=== PATIENT | female | born 1980 | race Caucasian/White ===

== ENCOUNTER 2016-12-25 15:21 | Inpatient (IN) | payer OTHER ==
[~2016-12-25] VITALS: Ht 177.8 cm; Wt 83.9 kg
[~2016-12-25 15:21] MED LIST: IBUPROFEN800 MG PO; NATURAL IRON65 MG PO; PERCOCET 325 MG1 TA2 PO; PRENATAL1 TA1 PO; VITAB121000 PO; ZOFRAN4 M1 PO
--- NOTE | 2016-12-25 15:24 | NUR ---
PT TO ED C/O UPPER ABD PAIN SINCE TUESDAY. PT WENT TO SEE DR KELLOGG AND WAS GIVEN BENTYL AND PRILOSEC, HAS BEEN TAKING PRESCRIBED WITH NO RELIEF. PAIN IS WORSE AFTER EATING. DENIES N/V/D. DENIES CLAIR S/S.
--- NOTE | 2016-12-25 15:35 | NUR ---
SMILEY CHOIUN IN WITH PATIENT
--- NOTE | 2016-12-25 15:36 | ED GI/GU/ABDOMINAL COMPLAINT ---
History of Present Illness General Chief Complaint: Abdominal Pain/Flank Pain Stated Complaint: ABDOMINAL PAIN Source: patient, family, old records Exam Limitations: no limitations Vital Signs & Intake/Output Vital Signs & Intake/Output Vital Signs Date Time Temp Pulse Resp B/P B/P Pulse O2 O2 Flow FiO2 Mean Ox Delivery Rate 12/26 0658 98.3 70 20 112/70 98 12/25 2208 98.0 81 18 128/66 98 12/25 2042 99.3 71 16 125/69 98 Room Air 12/25 1859 98.9 75 16 126/65 99 Room Air 12/25 1523 97.8 100 20 128/80 98 Room Air ED Intake and Output 12/26 0000 12/25 1200 Intake Total 1400 Output Total Balance 1400 Intake, IV 1300 Intake, Oral 100 Patient 185 lb Weight Weight Reported by Patient Measurement Method Triage Note: PT TO ED C/O UPPER ABD PAIN SINCE TUESDAY. PT WENT TO SEE DR KELLOGG AND WAS GIVEN BENTYL AND PRILOSEC, HAS BEEN TAKING PRESCRIBED WITH NO RELIEF. PAIN IS WORSE AFTER EATING. DENIES N/V/D. DENIES S/S. Triage Nurses Notes Reviewed? yes ? n Is pt currently ? No HPI: Patient is a 36-year-old female presents complaining of upper abdominal pain. Symptoms onset Tuesday evening. Patient reports pain is a burning/aching sensation is currently moderate, worsens after eating or drinking. Patient reports that even water has caused exacerbation of her symptoms. Patient saw her primary doctor on Tuesday and was started on omeprazole with no improvement. Patient was also seen on by her primary doctor and was prescribed Bentyl with no improvement. Patient had a fever on Tuesday, no fever since. (KRYSTLE HARDIN) Allergies Coded Allergies: NO KNOWN ALLERGIES (12/25/16) Reconcile Medications Sertraline HCl 50 MG TABLET 1 TAB PO DAILY DEPRSSION (Reported) (CHLOÉ SLOAN,PEDRO Fountain) Past History Travel History Traveled to [place] past 21 day No Medical History Any Pertinent Medical History? see below for history Psychiatric: depression Surgical History Surgical History: Psychosocial History What is your primary language Dominican Tobacco Use: Never used ETOH Use: occasional use Illicit Drug Use: denies illicit drug use Family History Hx Contributory? No (KRYSTLE HARDIN) Review of Systems Review of Systems Constitutional: Reports: fever (resolved). Denies: chills. EENTM: Reports: no symptoms. Respiratory: Denies: cough, short of breath. Cardiovascular: Denies: chest pain. GI: Reports: see HPI. Genitourinary: Reports: no symptoms. Musculoskeletal: Reports: no symptoms. Skin: Reports: no symptoms. Neurological/Psychological: Reports: no symptoms. Hematologic/Endocrine: Reports: no symptoms. Immunologic/Allergic: Reports: no symptoms. (KRYSTLE HARDIN) Physical Exam Physical Exam General Appearance: well developed/nourished, alert, awake Head: atraumatic, normal appearance Eyes: Bilateral: normal appearance, PERRL, EOMI. Ears, Nose, Throat, Mouth: hearing grossly normal, moist mucous membrane Neck: normal inspection, supple, full range of motion Respiratory: normal breath sounds, chest non-tender, no respiratory distress, lungs clear Cardiovascular: regular rate/rhythm Gastrointestinal: normal bowel sounds, soft, mild epigastric and right upper quadrant tenderness. Negative Jiménez sign Back: normal inspection, normal range of motion Extremities: normal range of motion Neurologic/Psych: no motor/sensory deficits, awake, alert, oriented x 3, normal gait, normal mood/affect Skin: intact, normal color, warm/dry Core Measures ACS in differential dx? No Severe Sepsis Present: No Septic Shock Present: No (KRYSTLE HARDIN) Progress Differential Diagnosis: pancreatitis, cholecystitis, biliary colic, small bowel obstruction, ileus, PUD, GERD, malignancy, aortic dissection, AAA Plan of Care: Orders Procedure Date/time Status Nothing by Mouth 12/27 B Active Clear Liquid Diet 12/26 B Active PHARMACY COMMUNICATION FORM 12/26 0914 Active BASIC ELECTROLYTES PLUS BUN&CR 12/26 0600 Complete Clear Liquid Diet 12/25 D Complete Vital Signs 12/25 230 Complete Teach/Educate 12/25 2299 Active Pain Treatment and Response 12/25 2299 Active Nutritional Intake, Monitor 12/25 2299 Active Isolation 12/25 230 Active Intake & Output 12/25 2299 Complete Patient Care Conference 12/25 2299 Active Activity/Ambulation 12/25 2299 Complete Pathway - chart 12/25 2041 Active Pathway - chart 12/26 2031 Active House Staff 12/26 2031 Active Code Status 12/26 2031 Active OXYGEN SETUP (GEN) 12/26 1931 Active Saline Lock 12/26 1931 Active Admit to inpatient 12/26 1931 Active Vital Signs 12/26 1931 Active Activity/Ambulation 12/26 1931 Active Code Status 12/26 1931 Complete Patient Data 12/25 1924 Active Admit to inpatient 12/25 191 Active Intake & Output 12/25 1744 Active LIPASE 12/25 1544 Complete HUMAN BETA HCG SCREEN 12/25 1544 Complete COMPREHENSIVE METABOLIC PANEL 12/25 1544 Complete CBC WITHOUT DIFFERENTIAL 12/25 1544 Complete AMYLASE 12/25 1544 Complete VTE Mechanical Prophylaxis 12/25 UNK Active Current Medications Sig/Clarisa Start time Last Medication Dose Stop Time Status Admin Enoxaparin Sodium 40 MG DAILY 12/25 2359 AC 12/26 (Lovenox) 0234 Dextrose/Sodium 1,000 ML Q6H 12/25 2100 AC 12/26 Chloride 0905 (D5W-1/2 Normal Saline 1000ML) Acetaminophen 1,000 MG Q6P PRN 12/25 2044 AC 12/26 (Ofirmev) 0905 Dicyclomine HCl 10 MG Q6 PRN 12/25 2044 AC (Bentyl Injection) 12/27 0600 Morphine Sulfate 2 MG Q4P PRN 12/25 2044 AC 12/26 (Morphine) 0702 Ondansetron HCl 4 MG Q6P PRN 12/25 2044 AC (Zofran) Pantoprazole Sodium 40 MG DAILY 12/25 2033 AC 12/26 (Protonix) 0905 Laboratory Tests 12/26/16 0646: Anion Gap 10, Estimated GFR > 60, BUN/Creatinine Ratio 18.0 12/25/16 1600: Anion Gap 10, Estimated GFR > 60, BUN/Creatinine Ratio 32.0 H, Glucose 95, Calcium 9.0, Total Bilirubin 0.7, AST 23, ALT 37, Alkaline Phosphatase 55, Total Protein 7.3, Albumin 4.3, Globulin 3.0, Albumin/Globulin Ratio 1.4, Amylase 80, Lipase 106, Total Beta HCG NEGATIVE, CBC w Diff NO MAN DIFF REQ, RBC 4.47, MCV 84.3, MCH 28.4, RDW 13.1, MPV 8.1, Gran % 49.0, Lymphocytes % 33.8, Monocytes % 14.6 H, Eosinophils % 1.9, Basophils % 0.7, Absolute Granulocytes 2.0, Absolute Lymphocytes 1.4, Absolute Monocytes 0.6, Absolute Eosinophils 0.1, Absolute Basophils 0, PUBS MCHC 33.7 190: Discussed with Dr. Sarabia: recommends admission, will consult on patient in the morning. Discussed with Dr. Cruz. Discussed with Dr. Plata (KRYSTLE HARDIN) Diagnostic Imaging: Viewed by Me: CT Scan. Discussed w/RAD: CT Scan. Radiology Impression: PATIENT: CK COATES PRESENT AGE: 51 PATIENT ACCOUNT NO: [id number] : [birth year] LOCATION: [facility] ORDERING PHYSICIAN: KRYSTLE REIS SERVICE DATE: 12/25/16 EXAM TYPE: RAD - XRY-PORTABLE CHEST XRAY EXAMINATION: XR PORTABLE CHEST CLINICAL INFORMATION: Severe dyspnea. COMPARISON: CXR from 10/02/2016 TECHNIQUE: Portable AP view of the chest was obtained. FINDINGS: Lungs are hyperexpanded and hyperlucent from severe emphysema. The bronchial rivera remain thickened in both lungs. This could be a manifestation of chronic bronchitis. A stable calcified granuloma seen in the right upper lobe. In this region, there is a linear opacity of apparent scarring, unchanged compared to 10/02/2016. The hazy opacity projecting lateral to the lower cardiac border might be related to the overlying breast tissue. However, unable to exclude atelectasis or groundglass infiltrate in the lingula. Follow-up PA and lateral chest radiographs may be helpful. Cardiac silhouette is normal in size. The visualized bones are unremarkable. IMPRESSION: 1. Severe pulmonary emphysema and chronic bronchial wall thickening in both lungs. 2. Possible infiltrate within the lingula and/or left lower lobe. Follow-up with PA and lateral chest radiographs may be helpful to confirm presence of new disease in this region. DICTATED BY: SUSANNE RAUSCH MD DATE/ TIME DICTATED:12/25/161841 PUBLIC RELATIONS SUPERVISOR:SHAHID DATE/TIME TRANSCRIBED: 12/25/161841 CONFIDENTIAL, DO NOT COPY WITHOUT APPROPRIATE AUTHORIZATION. < Electronically signed in Other Vendor System> SIGNED BY: SUSANNE RAUSCH MD 12/25/16 7947 Initial ED EKG: none (KRYSTLE HARDIN) Departure Departure Time of Disposition: 1911 Disposition: STILL A PATIENT Condition: Stable Clinical Impression Primary Impression: Mass of stomach Referrals: LOI KELLOGG MD (PCP/Family) Departure Forms: Customer Survey General Discharge Information Admission Note Spoke With: NABEEL PLATA MD Documentation of Exam: Documentation of any treatments & extenuating circumstances including Concerns Regarding Discharge (functional status, medication knowledge or non-compliance, living conditions, etc.) that warrant an admission rather than observation: IV fluids, GI consultation, endoscopy and biopsy. Patient not able to tolerate significant oral intake due to severe pain with any oral intake. (MAX REIS,KRYSTLE) PA/SHERIFF SERGEANT Co-Sign Statement Statement: ED Attending supervision documentation- [] I saw and evaluated the patient. I have also reviewed all the pertinent lab results and diagnostic results. I agree with the findings and the plan of care as documented in the PA's/SHERIFF SERGEANT's documentation. [X] I have reviewed the ED Record and agree with the PA's/SHERIFF SERGEANT's documentation. [] Additions or exceptions (if any) to the PAs/SHERIFF SERGEANT's note and plan are summarized below: [] (CHLOÉ SLOAN,PEDRO Fountain)
[2016-12-25 16:12] LABS: ABSOLUTE BASOPHIL COUNT 0 /CUMM (0.0-0.2); ABSOLUTE EOSINOPHIL COUNT 0.1 /CUMM (0.0-0.7); ABSOLUTE LYMPH COUNT 1.4 /CUMM (1.2-3.4); ABSOLUTE MONOCYTE COUNT 0.6 /CUMM (0.10-0.60); BASOPHIL % 0.7 % (0.0-2.0); EOSINOPHIL % 1.9 % (0-5); HEMATOCRIT 37.6 % (37-47); MEAN CORPUSCULAR HGB 28.4 PG (27.0-31.0); MEAN CORPUSCULAR HGB CONC 33.7 G/DL (33.0-37.0); MEAN CORPUSCULAR VOLUME 84.3 FL (81.0-99.0); MEAN PLATELET VOLUME 8.1 FL (7.4-10.4); PLATELET COUNT 254 /CUMM (130-400); RBC DISTRIBUTION WIDTH 13.1 % (11.5-14.5); RED BLOOD CELL CT 4.47 /CUMM (4.20-5.40); WHITE BLOOD CELL COUNT 4.2 /CUMM (4.8-10.8)
--- NOTE | 2016-12-25 16:20 | NUR ---
PT GIVEN IV ZOFRAN PER ORDER. IVF RUNNING
--- NOTE | 2016-12-25 17:51 | NUR ---
PT TO CT SCAN
--- NOTE | 2016-12-25 18:39 | CT SCAN REPORT ---
EXAMINATION: CT ABDOMEN AND PELVIS WITH CONTRAST CLINICAL INFORMATION: Epigastric pain radiating to right upper and left upper quadrant. COMPARISON: None TECHNIQUE: Multidetector volumetric imaging was performed of the abdomen and pelvis before and after the IV administration of 94 mL of Optiray 320 intravenous contrast. Sagittal and coronal reformatted images were obtained on the technologist's workstation. DLP: 342 mGy-cm FINDINGS: LUNG BASES: Unremarkable. LIVER, GALLBLADDER, AND BILIARY TREE: Liver has normal size, contour and attenuation. There is a solitary focus of coarse calcification in the anterior hepatic segment. No evidence of hepatic mass or intrahepatic bile duct dilatation. Gallbladder is unremarkable. PANCREAS: Unremarkable. SPLEEN: The spleen is enlarged from a volumetric perspective, measuring 13.4 cm AP, 11.5 cm craniocaudal and approximately 5 cm wide at its hilum. There are no focal splenic lesions. The splenic vein is normal. ADRENAL GLANDS: Unremarkable. KIDNEYS AND URETERS: The kidneys are normal in size, shape, and attenuation. No hydronephrosis, hydroureter, or calculi seen. No perinephric stranding. BLADDER: Urinary bladder is empty and, therefore, suboptimally evaluated. No bladder calculi. GASTROINTESTINAL TRACT: The stomach is suboptimally distended. There appears to be a centrally ulcerating, smoothly marginated 5 x 4.6 x 4 cm mass arising from the wall of the lesser curvature of the proximal stomach (axial images 11-16, series 2; coronal reformatted images 35-45). The mass contacts the capsular surface of the adjacent left lobe of the liver but does not appear to infiltrate into the liver. Small and large bowel are normal in size. The appendix is normal. No evidence of acute inflammation or obstruction along the gastrointestinal tract. No ascites or pneumoperitoneum. There are no soft tissue nodules along the omentum. ABDOMINAL WALL: Unremarkable. LYMPH NODES: No pathologic sized lymph nodes within the abdomen or pelvis. VASCULAR: Abdominal aorta is normal in caliber and the celiac trunk, SMA, NEYMAR and renal arteries are widely patient. PELVIC VISCERA: The anteflexed uterus is normal in size. The ovaries are grossly normal. A trace amount of free fluid is seen in the pelvic cul-de-sac. OSSEOUS STRUCTURES: There is anterior disc space narrowing and osteophyte formation at T9-T10. There is moderate degenerative disc space narrowing, endplate irregularity and osteophyte formation of L4-L5. There are small sclerotic foci, compatible with bone islands, involving the L3 vertebral body and pelvic bones. No suspicious bone lesions. IMPRESSION: 1. There is a smoothly marginated, centrally ulcerating 5 x 4.6 x 4 cm mass along the wall of the lesser curvature of the proximal stomach for which differential diagnosis would include gastrointestinal stromal tumor. Recommend consultation with the gastroenterology service to determine whether further workup, including endoscopic biopsy, should be performed. 2. Splenomegaly without lymphadenopathy.
--- NOTE | 2016-12-25 18:59 | NUR ---
SMILEY SANTANA CONSULTING DR WELDON GI SPECIALIST FOR RECOMMENDATIONS.
--- NOTE | 2016-12-25 19:46 | NUR ---
IN WITH PT
--- NOTE | 2016-12-25 20:28 | History & Physical ---
SHRAVAN TORRES 12/25/16 2006: General Information and HPI MD Statement: I have seen and personally examined GRAY ROSS and documented this H&P. The patient is a 36 year old F who presented with a patient stated chief complaint of [epigastric pain]. Source of Information: patient, EMS Exam Limitations: no limitations History of Present Illness: 36-year-old woman without any significant past medical history was admitted for intractable abdominal pain and poor oral intake. According to patient her problems started about a month ago with intermittent heartburn which was responding to urgw-kem-bbycryh antiacid medication. On Tuesday night patient developed a severe wretching periumbilical and epigastric abdominal pain which was not responding to adof-kxj-ddjuzyj pain killers and acid suppressing treatments. Drinking or eating worsened the pain (no difference between liquid and solid but it tends to be less inflicted by warm liquids and inflicted more severely with greasy and spicy foods). Pain radiates to all the quadrants and tends to alleviate with not eating, patient felt nautious but did not vomit. She also reports slight increased in Temp (100.2) amd chills and flushing (??). Patient reports constipation for the past month, she denies diarrhea, weight loss, excessive sweating, lymphadenopathy, dark tarry stool, blood in the stool. Her symptoms fail to alleviate by PO omeprazole and dicyclomine. 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 Allergies/Medications Allergies: Coded Allergies: NO KNOWN ALLERGIES (12/25/16) Home Med list Sertraline HCl 50 MG TABLET 1 TAB PO DAILY DEPRSSION (Reported) Compliance With Home Meds: GOOD Past History Travel History Traveled to [place] past 21 day No Medical History Psychiatric: depression Surgical History Surgical History: Past Family/Social History Family History Relations & Conditions if any MOTHER (Breast CA). Psychosocial History ETOH Use: occasional use Illicit Drug Use: denies illicit drug use Functional Ability ADLs Independent: dressing, eating, toileting, bathing. Ambulation: independent IADLs Independent: shopping, housework, finances, food prep, telephone, transportation , medication admin. Review of Systems Review of Systems Constitutional: Reports: see HPI. EENTM: Reports: see HPI. Cardiovascular: Reports: see HPI. Respiratory: Reports: see HPI. GI: Reports: abdominal pain, constipation, nausea, vomiting. Genitourinary: Reports: no symptoms. Musculoskeletal: Reports: see HPI. Skin: Reports: see HPI. Neurological/Psychological: Reports: see HPI. All Other Systems: Reviewed and Negative Exam & Diagnostic Data Last 24 Hrs of Vital Signs/I&O Vital Signs Date Time Temp Pulse Resp B/P B/P Pulse O2 O2 Flow FiO2 Mean Ox Delivery Rate 12/25 1859 98.9 75 16 126/65 99 Room Air 12/25 1523 97.8 100 20 128/80 98 Room Air Intake & Output 12/25 1600 12/25 0800 12/25 0000 Intake Total Output Total Balance Patient 185 lb Weight Weight Reported by Patient Measurement Method Physical Exam General Appearance Alert, Oriented X3, Cooperative Sepsis Skin Exam (color): Normal for Ethnicity HEENT Atraumatic Neck Supple, No JVD Lymphatic Axillary nl, Cervical nl Cardiovascular Normal S1, Normal S2, No Murmurs Lungs Clear to Auscultation, Normal Air Movement Abdomen No Hepatospenomegaly, No Masses, preumbilical tenderness, normal active bs, no gaurding no rebound Neurological Normal Speech, Strength at 5/5 X4 Ext Extremities No Clubbing, No Cyanosis, No Edema, Normal Pulses, No Tenderness/ Swelling Vascular Normal Pulses, Pulses Symmetrical Last 24 Hrs of Labs/Sachin: Laboratory Tests 12/25/16 1600: Anion Gap 10, Estimated GFR > 60, BUN/Creatinine Ratio 32.0 H, Glucose 95, Calcium 9.0, Total Bilirubin 0.7, AST 23, ALT 37, Alkaline Phosphatase 55, Total Protein 7.3, Albumin 4.3, Globulin 3.0, Albumin/Globulin Ratio 1.4, Amylase 80, Lipase 106, Total Beta HCG NEGATIVE, CBC w Diff NO MAN DIFF REQ, RBC 4.47, MCV 84.3, MCH 28.4, RDW 13.1, MPV 8.1, Gran % 49.0, Lymphocytes % 33.8, Monocytes % 14.6 H, Eosinophils % 1.9, Basophils % 0.7, Absolute Granulocytes 2.0, Absolute Lymphocytes 1.4, Absolute Monocytes 0.6, Absolute Eosinophils 0.1, Absolute Basophils 0, PUBS MCHC 33.7 Diagnostic Data EKG Results no ekg Assessment/Plan Assessment: 36-year-old woman was admitted for intractable abdominal pain and by mouth intolerance. C BC: H&H: 12.7\37.6, MCV 84.3; BEP: Sodium 138, potassium 3.9. BUN 16, creatinine 0.5, CT scan of the abdomen and pelvis: The stomach is suboptimally distended. There appears to be a centrally ulcerating, smoothly marginated 5 x 4.6 x 4 cm mass arising from the wall of the lesser curvature of the proximal stomach (axial images 11-16, series 2; coronal reformatted images 35-45). The mass contacts the capsular surface of the adjacent left lobe of the liver but does not appear to infiltrate into the liver. List of active problems #1. PRE- Umbilical and epigastric abdominal pain: This of differential diagnosis Gastric lymphomas, GISTs, neuroendocrine tumors, leiomyomas, leiomyosarcomas, carcinomas, endometriosis, lipomas, and diverticuli can all arise from the wall of the gastrointestinal tract. Normal pancreas, cystic lesions, and endometriosis can also rarely present in such a fashion. * Admit to general medical floor * Clear liquid diets * Resume IV hydration with D5 normal saline 150 mL per hour * Omeprazole 40 mg IV daily * Dicyclomine 10 mg every 6 hours as needed up to 2 days * Gastroenterology service was informed-plan for endoscopy and biopsy on Tuesday; nothing by mouth overnight from Tuesday midnight * IV Zofran 4 mg every 6 as needed for nausea #2 dehydration and hypokalemia. Secondary to poor oral intake * Continue IV hydration with D5 normal saline 150 mL per hour * KCl 10 mL IV #3 DVT prophylaxis-enoxaparin 30 units subcutaneous daily #4 pain: Dicyclomine for abdominal pain, avoid NSAIDs and aspirin, IV Tylenol for MODERATE pain, IV morphine for very severe pain Full code As Ranked By This Provider Problem List: 1. Nausea & vomiting 2. Mass of stomach Core Measures/Miscellaneous Acute Coronary Syndrome ACS Diagnosis: No Cerebrovascular Accident CVA/TIA Diagnosis: No NIH Stroke Scale: Total 0 Congestive Heart Failure CHF Diagnosis: No Venous Thromboembolism VTE Risk Factors: Acute medical illness, Immobility, paresis No Mech VTE prophylaxis d/t: No contraindications No VTE Pharm Prophylaxis d/t: No contraindications VTE Diagnosis: No VTE Type: NONE VTE Confirmed by (Test): NONE Severe Sepsis Severe Sepsis Present: No Septic Shock Septic Shock Present: No Miscellaneous Documentation Attending Case Discussed With: NABEEL PLATA MD Primary Care Physician: LOI KELLOGG MD A Patient sees these Specialists MEDIA SERVICES SPECIALIST Level of Patient Care: General Medicine Resident Review Statement Resident Statement: examined this patient, discussed with internal investigator, agreed with internal investigator, discussed with family, reviewed EMR data (avail), discussed with nursing , discussed with case mgmt, reviewed images, amended to note FILIPE PLATA MD 12/25/16 2200: Attending MD Review Statement Attending Statement Attending MD Statement: examined this patient, discuss w/resident/PA/COMPOSING ROOM SUPERVISOR, agreed w/resident/PA/COMPOSING ROOM SUPERVISOR Attending Assessment/Plan: 36 yo F with h/o depression, pw 1 month h/o heartburn that initially responded to OTC antacids, but for the past 1 week she developed epigastric/ periumbilical pain not responding to omeprazole and Bentyl that PCP had prescribed. Poor PO intake, as food/ liquids makes her symptoms worse. Nausea/ retching+. No dysphagia or odynophagia. No melena, hematochezia or BRBPR. No weight loss. No previous EGD or colonoscopy. No significant family h/o gastric caner. Patient has never been diagnosed with PUD. Vitals stable. Exam remarkable for minimal periumbilical tenderness. Patient reports that the discomfort occurs only after she eats food. Labs unremarkable. CT abd/pelvis: mass (centrally ulcerating) along lesser curvature of stomach possible gastrointestinal stromal tumor. Splenomegaly. 1. Heartburn, epigastric/periumbilical pain. GM admit, clear liquid diet, IV fluids, IV PPI, anti-emetics. GI consult with need for EGD to further evaluate the mass and biopsy it. Pain management. 2. Depression. Hold sertraline. DVT ppx Lovenox. Full code.
--- NOTE | 2016-12-25 20:34 | NUR ---
PT GOING TO ROOM 209-1.
--- NOTE | 2016-12-25 20:43 | NUR ---
REPORT GIVEN TO FILIPPO HAYWARD ON 2NB. PT TO BE TRANSFERRED TO 208.
[2016-12-25] MEDS ORDERED: SERTRALINE HCL50 MG PO (21:07)
--- NOTE | 2016-12-25 21:08 | NUR ---
PT A+O AND IN NAD. LEFT FLOOR ON STRETCHER. ALL BELONGINGS WITH PT.
--- NOTE | 2016-12-25 22:02 | Admission Certification ---
Admission Certification Certification Statement - As attending physician, I certify that at the time of - admission, based on clinical presentation, severity of - symptoms, need for further diagnostic testing and - therapeutic interventions, and risk of adverse outcomes - without in-hospital treatment, in my clinical assessment, - this patient requires an acute hospital stay for a minimum - of two nights or longer. I have also considered psychsocial - factors such as support system, advanced age, financial - issues, cognitive issues, and failed out-patient treatments, - past re-admission history, safety of patient, and lack of - compliance as applicable. Specific rationale supporting this admission is: Heartburn, stomach mass that needs further evaluation by GI with EGD.
[2016-12-25 22:08] VITALS: BP 128/66
[2016-12-26 06:58] VITALS: BP 112/70
--- NOTE | 2016-12-26 11:52 | PN- Att Addend ---
Attending Addendum Attending Brief Note Pt was seen and evaluated by me. H&P reviewed. Currently, reports doing OK, able to tolerate diet. On IVF VSS GEN: pleasant lady, AAOx3 HEENT: moist mucosa LUNGS: CTAB HEART: s1s2 ABD: soft, mild tenderness to deep palp over RUQ area EXT: no edema Labs/Diagnostics reviewed A/P -- f/u GI consult for possible EDG with biopsy -- cont current mgmt -- cont to monitor -- Full Code
[2016-12-26 14:26] VITALS: BP 112/71
--- NOTE | 2016-12-26 15:05 | Cons- Gastroenterology ---
General Information and HPI Consulting Request Date of Consult: 12/26/16 Requested By: BONI SLOAN,NABEEL Reason for Consult: Abdo pain Source of Information: patient, old records Exam Limitations: no limitations History of Present Illness: 36-year-old woman without any significant past medical history with intractable epigastric pain and poor oral intake due to exacerbation of the pain by eating. According to patient her problems started about a month ago with intermittent heartburn which was responding to [id number] antiacid medication. 4 days before admission patient developed a severe wretching periumbilical and epigastric abdominal pain which was not responding to NSAIDs and acid suppressing treatments. Drinking or eating worsened the pain. Pain radiates to all the quadrants and tends to alleviate with not eating, patient felt nautious but did not vomit. Pain was not worsened by movement or having a bowel movement. Patient may have had a little bit of weight loss in the last 4 days due to poor by mouth intake but in general has not been losing weight. 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 Patient is a lifetime nonsmoker/socially drinks alcohol/family history is strongly positive for breast cancer in her mother and grandmother. A grandparent had colon cancer but no other history of GI malignancies or peptic ulcer disease. Allergies/Medications Allergies: Coded Allergies: NO KNOWN ALLERGIES (12/25/16) Home Med List: Sertraline HCl 50 MG TABLET 1 TAB PO DAILY DEPRSSION (Reported) Past History Travel History Traveled to [place] past 21 day No Medical History Psychiatric: depression Surgical History Surgical History: Family History Relations & Conditions If Any: MOTHER (Breast CA). Psychosocial History Where Do You Live? Home Smoking Status: Never Smoked ETOH Use: occasional use Illicit Drug Use: denies illicit drug use Functional Ability ADLs Independent: dressing, eating, toileting, bathing. Ambulation: independent IADLs Independent: shopping, housework, finances, food prep, telephone, transportation , medication admin. Review of Systems Review of Systems: Continues to have mild epigastric pain but is haven't a medicated at present. Nausea no vomiting. Has an appetite but reluctant to eat as this usually exacerbates the pain. No malaise fatigue cough phlegm dysuria right goers chills. Exam & Diagnostic Data Vital Signs and I&O General Appearance Alert, Oriented X3, Cooperative Sepsis Skin Exam (color): Normal for Ethnicity HEENT Atraumatic Neck Supple, No JVD Lymphatic Axillary nl, Cervical nl Cardiovascular Normal S1, Normal S2, No Murmurs Lungs Clear to Auscultation, Normal Air Movement Abdomen No Hepatospenomegaly, No Masses, preumbilical tenderness, normal active bs, no gaurding no rebound Neurological Normal Speech, Strength at 5/5 X4 Ext Extremities No Clubbing, No Cyanosis, No Edema, Normal Pulses, No Tenderness/ Swelling Vascular Normal Pulses, Pulses Symmetrical No lymphadenopathy in either axilla. Vital Signs Date Time Temp Pulse Resp B/P B/P Pulse O2 O2 Flow FiO2 Mean Ox Delivery Rate 12/26 1426 98.6 76 20 112/71 97 Room Air 12/26 0658 98.3 70 20 112/70 98 12/25 2208 98.0 81 18 128/66 98 12/25 2042 99.3 71 16 125/69 98 Room Air 12/25 1859 98.9 75 16 126/65 99 Room Air 12/25 1523 97.8 100 20 128/80 98 Room Air Intake & Output 12/26 1600 14 0400 12/25 1600 12/25 0400 12/24 1600 12/24 0400 Intake Total 2540 1400 Output Total Balance 2540 1400 Intake, IV 2200 1300 Intake, Oral 340 100 Patient 185 lb 185 lb Weight Weight Reported by Patient Reported by Patient Measurement Method CT: GASTROINTESTINAL TRACT: The stomach is suboptimally distended. There appears to be a centrally ulcerating, smoothly marginated 5 x 4.6 x 4 cm mass arising from the wall of the lesser curvature of the proximal stomach (axial images 11-16, series 2; coronal reformatted images 35-45). The mass contacts the capsular surface of the adjacent left lobe of the liver but does not appear to infiltrate into the liver. Small and large bowel are normal in size. The appendix is normal. No evidence of acute inflammation or obstruction along the gastrointestinal tract. No ascites or pneumoperitoneum. There are no soft tissue nodules along the omentum. Assessment/Plan Assessment/Recommendations: In summary we have a 36-year-old lady with approximately a one-month history of epigastric discomfort and a 4 day history of severe epigastric pain. The CT scan shows a mass in the lesser curvature of the stomach with some evidence of abnormality in the hepatic capsule. The presence of a mass with an ulceration and some involvement of the hepatic She'll is very concerning for a taking tumor. However her overall health with lack of weight loss and general cachexia favors a more benign etiology. At present the differential includes every gastric mass. The fact that the patient doesn't have evidence of anemia or iron deficiency is somewhat reassuring. Please place the patient nothing by mouth from midnight for EGD tomorrow. Consult Acknowledgment - Thank you for your consult request.
[2016-12-26 21:46] VITALS: BP 100/60
[2016-12-27 06:15] VITALS: BP 100/58
--- NOTE | 2016-12-27 07:03 | PN- Housestaff ---
NGUYEN MALHOTRA 12/27/16 0703: Subjective Follow-up For: Mass on lesser curvature proximal stomach Dyspepsia Complaints: no complaints Subjective: Interval history: Mrs. Mosley this morning states that she feels nervous about the potential diagnosis. She denies any worsening abdominal pain or recurrence of nausea. She denies any fevers, chills, chest pain, palpitations, shortness of breath, diarrhea. Review of Systems Constitutional: Reports: see HPI. EENTM: Reports: no symptoms. Cardiovascular: Reports: no symptoms. Respiratory: Reports: no symptoms. Gastrointestinal: Reports: see HPI. Musculoskeletal: Reports: no symptoms. Neurological/Psychological: Reports: see HPI. Objective Last 24 Hrs of Vital Signs/I&O Vital Signs Date Time Temp Pulse Resp B/P B/P Pulse O2 O2 Flow FiO2 Mean Ox Delivery Rate 12/27 0615 99.2 75 18 100/58 98 Room Air 12/26 2146 99.0 88 17 100/60 98 12/26 1426 98.6 76 20 112/71 97 Room Air Intake & Output 12/27 1600 12/27 0800 12/27 0000 Intake Total 1000 1320 Output Total Balance 1000 1320 Intake, IV 1000 1200 Intake, Oral 0 120 Physical Exam General Appearance: Alert, Cooperative, No Acute Distress Skin: No Breakdown HEENT: EOMI, Mucous Membr. moist/pink Cardiovascular: Regular Rate, Normal S1, Normal S2 Lungs: Clear to Auscultation, Normal Air Movement Abdomen: Normal Bowel Sounds, Soft, mild discomfort elicited on palpation over the epigastric region Neurological: Normal Tone, Sensation Intact Extremities: No Edema, Normal Pulses Vascular: Normal Pulses Current Medications: Current Medications Sig/Clarisa Start time Last Medication Dose Route Stop Time Status Admin Acetaminophen 1,000 MG Q6P PRN 12/25 2044 AC 12/26 IV 0905 Dextrose/Sodium 1,000 ML Q6H 12/25 2100 AC 12/27 Chloride IV 0437 Dicyclomine HCl 10 MG Q6 PRN 12/25 2044 DC IM 12/27 0600 Enoxaparin Sodium 40 MG 12/26 AC 12/26 SC 2200 Enoxaparin Sodium 40 MG DAILY 12/25 235 DC 12/26 SC 0234 Melatonin 3 MG ONCE ONE 12/26 2114 DC 12/26 PO 12/26 Morphine Sulfate 2 MG Q4P PRN 12/25 2044 12/26 IV 171 Ondansetron HCl 4 MG .[facility] ONE 12/26 1711 DC IM 12/27 1711 Ondansetron HCl 4 MG Q6P PRN 12/25 2044 12/26 IV 171 Pantoprazole Sodium 40 MG DAILY 12/25 2033 12/26 IV 0905 Assessment/Plan Assessment: Ms. Mosley is a 36-year-old lady with a PMH of depression managed on Zoloft who presented to [place] on 12/25/2016 with complaints of epigastric discomfort. Symptoms started one month ago with what she described as heartburn localized around the substernal region, nonradiating, constant, mild relief with Pepcid. On 12/21/2016 she was woken up from sleep with what she described as epigastric sharp pain not relieved with Pepcid or Tylenol, associated with nausea. She followed up with PCP and was started on omeprazole which did not provide relief to epigastric pain. She continued to experience the epigastric discomfort which is now exacerbated with liquids and a sensation of food getting stuck in the stomach region. She again followed up with her PCP and was started on dicyclomine which still did not provide any relief prompting her to come to the ED. She denied any recent travel, sick contacts, diarrhea, bloody/black stools. 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 Recommend consultation with the gastroenterology service to determine whether further workup, including endoscopic biopsy, should be performed. Problem list: 1. Mass on lesser curvature of proximal stomach 2. Dyspepsia 3. Depression Plan: 1. Mass on lesser curvature of proximal stomach * EGD on 12/27/2016: Fundic ulcerated submucosal mass. 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 We'll follow-up recommendations from surgical consult * Depending on how she tolerates diet, will coordinate outpatient or transfer for further management * If worsening pain/bleeding/hemodynamic instability will make her NPO, restart IV PPI, call surgery stat * Follow-up biopsies 2. Dyspepsia * Sucralfate 1 g PO QID * Omeprazole 40 mg PO BID * Avoid NSAIDs 3. Depression * Stable at this time * Continue Zoloft 4. DVT prophylaxis: Lovenox 5. CODE STATUS: Full code Problem List: 1. Mass of stomach 2. Gastric ulceration 3. Dyspepsia 4. Depression Pain Ratin Pain Location: Epigastric region Pain Goal: Pain 4 or less Pain Plan: Morphine Percocet Tomorrow's Labs & Rationales: None required DVT/Prophylaxis: pharmacological YOSHI BENTLEY MD 12/27/16 1200: Attending MD Review Statement Attending Statement Attending MD Statement: examined this patient, discuss w/resident/PA/DRILLING RIG OPERATOR, agreed w/resident/PA/DRILLING RIG OPERATOR, reviewed EMR data (avail), discussed with nursing, reviewed images Attending Assessment/Plan: Patient is nervous about EGD. She understands that there is a masslike lesion that was seen on the CT scan and that the endoscopy and biopsy will give us an answer. She is a young woman with really no significant past medical history who works as a teacher and has been having symptoms of heartburn for the past 3- 4 weeks. She is a nonsmoker, social alcohol and there hasn't been any significantly documented weight loss. The differential is very wide at this point and will await to see endoscopy results.
[2016-12-27 09:36] LABS: ABSOLUTE BASOPHIL COUNT 0 /CUMM (0.0-0.2); ABSOLUTE EOSINOPHIL COUNT 0.1 /CUMM (0.0-0.7); ABSOLUTE GRANULOCYTE CT 1.4 /CUMM (1.4-6.5); ABSOLUTE LYMPH COUNT 1.3 /CUMM (1.2-3.4); ABSOLUTE MONOCYTE COUNT 0.5 /CUMM (0.10-0.60); BASOPHIL % 0.4 % (0.0-2.0); EOSINOPHIL % 3.3 % (0-5); GRANULOCYTE % 44.1 % (42.2-75.2); HEMATOCRIT 33.4 % (37-47); MEAN CORPUSCULAR HGB 28.2 PG (27.0-31.0); MEAN CORPUSCULAR HGB CONC 33.9 G/DL (33.0-37.0); MEAN CORPUSCULAR VOLUME 83.4 FL (81.0-99.0); MEAN PLATELET VOLUME 8.3 FL (7.4-10.4); PLATELET COUNT 212 /CUMM (130-400); RBC DISTRIBUTION WIDTH 13.2 % (11.5-14.5); WHITE BLOOD CELL COUNT 3.3 /CUMM (4.8-10.8)
[2016-12-27 09:40] LABS: PT 12.6 SEC (9.4-12.5)
--- NOTE | 2016-12-27 09:54 | Discharge Summary ---
Visit Information Visit Dates Admission Date: 12/25/16 Discharge Date: 12/28/2016 Hospital Course Course Attending Physician: HERBERTH BURNETT MD Primary Care Physician: LOI KELLOGG MD Other Care Providers: Dr. Jolly (gastroenterology) Consulting Request: Consulting Specialty: Gastroenterology Hospital Course: Ms. Mosley is a 36-year-old lady with a PMH of depression managed on Zoloft who presented to [place] on 12/25/2016 with complaints of epigastric discomfort. Symptoms started one month ago with what she described as heartburn localized around the substernal region, nonradiating, constant, mild relief with Pepcid. On 12/21/2016 she was woken up from sleep with what she described as epigastric sharp pain not relieved with Pepcid or Tylenol, associated with nausea. She followed up with PCP and was started on omeprazole which did not provide relief to epigastric pain. She continued to experience the epigastric discomfort which is now exacerbated with liquids and a sensation of food getting stuck in the stomach region. She again followed up with her PCP and was started on dicyclomine which still did not provide any relief prompting her to come to the ED. She denied any recent travel, sick contacts, diarrhea, bloody/black stools. 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 Recommend consultation with the gastroenterology service to determine whether further workup, including endoscopic biopsy, should be performed. Problem list: 1. Mass on lesser curvature of proximal stomach 2. Ulceration on stomach mass 3. Dyspepsia 4. Depression Hospital course: 1. Mass on lesser curvature of proximal stomach with ulceration * The patient was admitted to the general medicine floor for management of her dyspepsia and incidental findings on CAT scan. * She underwent an EGD on 12/27/2016. Findings: Fundic ulcerated submucosal mass. 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 Once pathology report is available she can then be scheduled for surgial intervention * Advised patient to monitor for worsening abdominal pain, black/bloody stools, vomiting, fevers, chills, chest pain. * Follow-up biopsies PENDING 2. Dyspepsia * We started the patient on sucralfate 1 g PO QID before meals for ulceration present on endoscopic findings * Initially on IV PPI and transitioned to omeprazole 40 mg PO BID * Advised to avoid NSAIDs 3. Depression * Stable at this time * Continue Zoloft 4. DVT prophylaxis: Lovenox 5. CODE STATUS: Full code Allergies: Coded Allergies: NO KNOWN ALLERGIES (12/25/16) Significant Procedures: EGD on 12/27/2016: Findings: The esophagus had normal caliber and contour. The mucosa was intact throughout. The GE junction at 40 cm was normal. There was no evident hiatal hernia. The stomach had normal distention, and active antral peristalsis. The cardia was normal. Several centimeters from the cardia, on the lesser curvature of the fundus, was a 5 cm submucosal mass, with a small ulceration (nonbleeding). 2 biopsies were obtained. Mucosa and folds of the remainder of the stomach were normal. The pyloric channel was normal. The duodenal bulb was normal. Mucosa and folds of the duodenal sweep were normal. Impression: * Fundic ulcerated submucosal mass. 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 Recommendations: * Await pathology (although expect biopsies to be unrevealing) * Surgical consultation * Endoscopic ultrasound, to be arranged as outpatient * Continue PPI * Begin Carafate 1 g 4 times a day (before meals and at bedtime) * Discharge if can tolerate diet, with continued close outpatient management Disposition Summary Disposition Principal Diagnosis: Mass on lesser curvature proximal stomach Additional Diagnosis: Dyspepsia Ulceration on gastric mass Discharge Disposition: home or self care Discharge Instructions General Discharge Information Code Status: Full Code Patient's Diet: Regular diet Patient's Activity: As tolerated Follow-Up Instructions/Appts: Please follow-up with PCP within 1-2 weeks after discharge. Please follow-up with the instructor watch assembly within 1-2 weeks after discharge. Please follow-up with his surgeon within 1-2 weeks after discharge. Please take all medications as directed. Medications at Discharge Discharge Medications: Continue taking these medications: Sertraline HCl (Sertraline HCl) 50 MG TABLET 1 Tablet ORAL DAILY Qty = 30 Comments: Last Taken: 12/28/16 Time: 1130AM Start taking the following new medications: Sucralfate (Sucralfate) 1 GRAM/10 ML ORAL.SUSP 1 Gram ORAL 4 TIMES A DAY Days = 28 No Refills Comments: Last Taken: 12/28/16 Time: 1130AM Omeprazole (Omeprazole) 40 MG CAPSULE.DR 1 Capsule ORAL TWICE DAILY Days = 30 No Refills Comments: Last Taken: 12/28/16 Time: 0945AM Copies To: [facility] SLOAN,YOSHI A.; VALDEZ SLOAN,LOI Schumacher; ROSCOE SLOAN,JOANA JOLLY MD,FREDDY Anthony; JACY SLOAN,OLIVE Betancourt
--- NOTE | 2016-12-27 13:21 | Proc Note Endoscopy ---
Endoscopy Procedure Procedure Date: 12/27/16 Procedure Type: EGD w/biopsy Document Control Supervisor: Ed Jolly M.D. ASA Classification: II Indications: Epigastric pain Gastric mass on CT scan Instrument: diagnostic gastroscope Meds Received: MAC Patient's Tolerance: good Complications: none Extent Reached: second part of duodenum Procedure: The patient signed informed consent, and was medicated. Hurricane pharyngeal spray was administered. Pulse oximetry, blood pressure and cardiac monitoring were performed continuously throughout the procedure. The Olympus high- definition gastroscope was inserted into the mouth and advanced to the duodenum. Retroflexion was performed within the stomach to examine the cardia. Careful examination was performed. Findings: The esophagus had normal caliber and contour. The mucosa was intact throughout. The GE junction at 40 cm was normal. There was no evident hiatal hernia. The stomach had normal distention, and active antral peristalsis. The cardia was normal. Several centimeters from the cardia, on the lesser curvature of the fundus, was a 5 cm submucosal mass, with a small ulceration (nonbleeding). 2 biopsies were obtained. Mucosa and folds of the remainder of the stomach were normal. The pyloric channel was normal. The duodenal bulb was normal. Mucosa and folds of the duodenal sweep were normal. Impression: * Fundic ulcerated submucosal mass. 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
[2016-12-27 14:34] VITALS: BP 118/66
[2016-12-27] MEDS ORDERED: OMEPRAZOLE40 M1 PO (15:50)
[2016-12-27] MEDS ORDERED: CARAFATE1 G1 PO (15:50)
--- NOTE | 2016-12-27 15:51 | Patient Discharge Instructions ---
Discharge Instructions General Discharge Information You were seen/treated for: 1. Mass on lesser curvature of proximal stomach 2. Ulceration on stomach mass 3. Dyspepsia You had these procedures: Upper endoscopy Watch for these problems: Nausea, vomiting, worsening abdominal pain, fevers, chills, bloody stool, black stool, dizziness Special Instructions: Please take all medications as directed. [facility] will be contacted by [facility] for an endoscopic ultrasound. If you dont hear from them by 12/30/16, please call Dr Jolly's office at the number provided. If you have any worsening symptoms, please return to the nearest ED. If possible , [facility] can go to [facility] ED. Once the endoscopic ultrasound has been done, contact Dr Kang's office for follow up recommendations. Please follow-up with your PCP within one week after discharge. Please follow-up with your senior windows engineer as directed. Please follow-up with your surgeon as directed. Diet Recommended Diet: Full Liquids Additional DIET Information: Ensure supplements as tolerated Activity Full Activity/No Limits: Yes Acute Coronary Syndrome Inclusion Criteria At DC or during hospital stay patient has or had the following: ACS DIAGNOSIS No Discharge Core Measures Meds if any: Prescribed or Continued at Discharge Meds if any: NOT Prescribed or Continued at Discharge Congestive Heart Failure Inclusion Criteria At DC or during hospital stay patient has or had the following: CHF DIAGNOSIS No Discharge Core Measures Meds if any: Prescribed or Continued at Discharge Meds if any: NOT Prescribed or Continued at Discharge Cerebrovascular accident Inclusion Criteria At DC or during hospital stay patient has or had the following: CVA/TIA Diagnosis No Discharge Core Measures Meds if any: Prescribed or Continued at Discharge Meds if any: NOT Prescribed or Continued at Discharge Venous thromboembolism Inclusion Criteria VTE Diagnosis No VTE Type NONE VTE Confirmed by (Test) NONE Discharge Core Measures - Per Current guidelines, there needs to be overlap - treatment for the first 5 days of Warfarin therapy. - If discharged on Warfarin prior to 5 days of - overlap therapy, the patient will need to be - assessed for post discharge needs including - *Post discharge parental anticoagulation - *Warfarin and/or parental anticoagulation education - *Follow up date to check INR post discharge At least 5 days overlap therapy as Inpatient No Meds if any: Prescribed or Continued at Discharge Note: Overlap Therapy is Warfarin and Anticoagulant Meds if any: NOT Prescribed or Continued at Discharge
--- NOTE | 2016-12-27 16:41 | Cons- General Surgery ---
General Information and HPI Consulting Request Date of Consult: 12/27/16 Requested By: HERBERTH BURNETT MD Reason for Consult: gastric mass History of Present Illness: This is a 36-year-old relatively healthy woman who presents to the medical service with progressive GERD, upper abdominal pain. Her symptoms began about a month ago with worsening regurgitation symptoms. She took [id number] preparations without effect. Eventually the symptoms became severe with associated dysphasia and odynophagia. She was seen by primary care physician who ordered a proton pump inhibitor without effect. She came to the emergency room at which time CT scan was performed. Findings show a mass in the upper stomach. 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 Allergies/Medications Allergies: Coded Allergies: NO KNOWN ALLERGIES (12/25/16) Home Med List: Omeprazole 40 MG CAPSULE.DR 1 CAP PO BID GAstric protection Sertraline HCl 50 MG TABLET 1 TAB PO DAILY DEPRSSION (Reported) Sucralfate (Carafate) 1 GRAM TABLET 1 TAB PO 4 TIMES/DAY Gastric protection Past History Medical History Psychiatric: depression Surgical History Pertinent Surgical History: (x3) Family History Relations & Conditions If Any: MOTHER (Breast CA). Psychosocial History Where Do You Live? Home Smoking Status: Never Smoked ETOH Use: occasional use Illicit Drug Use: denies illicit drug use Functional Ability ADLs Independent: dressing, eating, toileting, bathing. Ambulation: independent IADLs Independent: shopping, housework, finances, food prep, telephone, transportation , medication admin. Review of Systems Review of Systems: no chest pain. abd pain/GERD per Hpi. no dyspnea. remainder 12 neg. Exam & Diagnostic Data Vital Signs and I&O Vital Signs Date Time Temp Pulse Resp B/P B/P Pulse O2 O2 Flow FiO2 Mean Ox Delivery Rate 12/27 1434 98.1 74 20 118/66 96 Room Air 12/27 0615 99.2 75 18 100/58 98 Room Air 12/266 99.0 88 17 100/60 98 Intake & Output 12/27 1600 12/27 0800 12/27 0000 12/26 1600 12/26 0800 12/26 0000 Intake Total 1000 1000 1320 1440 1100 1400 Output Total Balance 1000 1000 1320 1440 1100 1400 Intake, IV 1000 1000 1200 1200 1000 1300 Intake, Oral 0 0 120 240 100 100 Patient 185 lb Weight Weight Reported by Patient Measurement Method Physical Exam: Gen: Looks well looks her stated age no distress HEENT: Anicteric PERRL EOMI Neck: Supple no adenopathy no thyromegaly no JVD. Abdomen: Soft nontender nondistended no mass Extremities: No cyanosis clubbing or edema Last 24 Hours of Labs: Laboratory Tests 12/27 0915 Coagulation PT (9.4 - 12.5 SEC) 12.6 H INR (0.90 - 1.19) 1.20 H Hematology CBC w Diff NO MAN DIFF REQ WBC (4.8 - 10.8 /CUMM) 3.3 L RBC (4.20 - 5.40 /CUMM) 4.00 L Hgb (12.0 - 16.0 G/DL) 11.3 L Hct (37 - 47 %) 33.4 L MCV (81.0 - 99.0 FL) 83.4 MCH (27.0 - 31.0 PG) 28.2 RDW (11.5 - 14.5 %) 13.2 Plt Count (130 - 400 /CUMM) 212 MPV (7.4 - 10.4 FL) 8.3 Gran % (42.2 - 75.2 %) 44.1 Lymphocytes % (20.5 - 51.1 %) 38.3 Monocytes % (1.7 - 9.3 %) 13.9 H Eosinophils % (0 - 5 %) 3.3 Basophils % (0.0 - 2.0 %) 0.4 Absolute Granulocytes (1.4 - 6.5 /CUMM) 1.4 Absolute Lymphocytes (1.2 - 3.4 /CUMM) 1.3 Absolute Monocytes (0.10 - 0.60 /CUMM) 0.5 Absolute Eosinophils (0.0 - 0.7 /CUMM) 0.1 Absolute Basophils (0.0 - 0.2 /CUMM) 0 PUBS MCHC (33.0 - 37.0 G/DL) 33.9 Imaging Results: CT scan of the abdomen pelvis was personally reviewed. Findings show an exophytic mass in the upper stomach near the GE junction. Assessment/Plan Assessment/Plan Large gastric mass measuring 4-5 cm. 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 Await endoscopic biopsy. If nondiagnostic, consider referral for endoscopic ultrasound with biopsy. Surgical resection will be necessary once her workup is completed. Given the appearance and location of the tumor on both CT scan and endoscopy, it appears that laparoscopic resection may be feasible. My only concern is if it encroaches the GE junction. This would make resection more complicated. We'll follow with you. Consult Acknowledgment - Thank you for your consult request.
[2016-12-27 22:31] VITALS: BP 102/60
[2016-12-27 23:33] VITALS: BP 116/70
--- NOTE | 2016-12-28 00:54 | NUR ---
ALERT AND ORIENTED X 3. ON ROOM AIR. LUNG SOUNDS CLEAR. NO SHORTNESS OF BREATH VITAL SIGNS STABLE. DENIES CHEST PAIN. + PULSES. NO EDEMA. SKIN C/D/I. STEADY GAIT. SHARP PAIN NOTED WHEN PATIENT TRIED TO EAT DINNER. ONCE THE PATIENT RECEIVED CARAFATE SHE WAS ABLE TO TOLERATE EATING. AUDIOVISUAL AIDS TECHNICIAN AWARE. PATIENT RESTING AT THIS TIME. WILL CONTINUE TO MONITOR
[2016-12-28 06:33] VITALS: BP 122/76
--- NOTE | 2016-12-28 06:45 | PN- Housestaff ---
NGUYEN MALHOTRA 12/28/16 0645: Subjective Follow-up For: Mass on lesser curvature proximal stomach Dyspepsia Complaints: no complaints Subjective: Interval history: This morning Mrs. Mosley reports feeling much better than she did 24 hours ago. She reports that the medication appears to have suppressed her abdominal discomfort. She denies any fevers, chills, headache, blurred vision, chest pain, palpitations, shortness of breath, nausea, diarrhea. Review of Systems Constitutional: Reports: see HPI. EENTM: Reports: no symptoms. Cardiovascular: Reports: no symptoms. Respiratory: Reports: no symptoms. Gastrointestinal: Reports: see HPI. Musculoskeletal: Reports: no symptoms. Objective Last 24 Hrs of Vital Signs/I&O Vital Signs Date Time Temp Pulse Resp B/P B/P Pulse O2 O2 Flow FiO2 Mean Ox Delivery Rate 12/28 0633 98.4 86 18 122/76 97 Room Air 12/27 2333 98.1 70 20 116/70 97 Room Air 12/27 2231 97.8 65 18 102/60 98 Room Air 12/27 1434 98.1 74 20 118/66 96 Room Air Intake & Output 12/28 1600 12/28 0800 12/28 0000 Intake Total 1240 350 Output Total Balance 1240 350 Intake, IV 1000 Intake, Oral 240 350 Physical Exam General Appearance: Alert, Cooperative, No Acute Distress Skin: No Breakdown HEENT: EOMI, Mucous Membr. moist/pink Cardiovascular: Regular Rate, Normal S1, Normal S2 Lungs: Clear to Auscultation, Normal Air Movement Abdomen: Normal Bowel Sounds, Soft, No Tenderness Extremities: No Edema, Normal Pulses Current Medications: Current Medications Sig/Clarisa Start time Last Medication Dose Route Stop Time Status Admin Acetaminophen 1,000 MG Q6P PRN 12/25 2044 12/28 IV 0622 Dextrose/Sodium 1,000 ML Q6H 12/25 2100 DC 12/28 Chloride IV 0141 Enoxaparin Sodium 40 MG 2200 12/26 220 AC 12/27 SC 2225 Lidocaine 2 KIMBERLY .STK-MED ONE 12/27 1335 DC TOP 12/27 1336 Morphine Sulfate 2 MG Q4P PRN 12/25 2044 12/26 IV 1719 Omeprazole 40 MG BID 12/28 1000 AC 12/28 PO 0945 Ondansetron HCl 4 MG Q6P PRN 12/25 2044 12/26 IV 1719 Pantoprazole Sodium 40 MG DAILY 12/25 2034 KS 12/27 IV 12/28 0000 0938 Patient Medication 1 UNIT 1000 12/28 1000 [facility] ED 12/28 1001 Patient Medication 1 ED .STK-MED ONE 12/27 1250 [facility] ED 12/27 1251 Sucralfate 1 GM 4 TIMES/DAY 12/28 1000 PO Sucralfate 1,000 MG 4 TIMES/DAY 12/27 1851 KS PO Sucralfate 1,000 MG 4 TIMES/DAY 12/27 1400 KS 12/27 PO 2224 Assessment/Plan Assessment: Ms. Mosley is a 36-year-old lady with a PMH of depression managed on Zoloft who presented to [place] on 12/25/2016 with complaints of epigastric discomfort. Symptoms started one month ago with what she described as heartburn localized around the substernal region, nonradiating, constant, mild relief with Pepcid. On 12/21/2016 she was woken up from sleep with what she described as epigastric sharp pain not relieved with Pepcid or Tylenol, associated with nausea. She followed up with PCP and was started on omeprazole which did not provide relief to epigastric pain. She continued to experience the epigastric discomfort which is now exacerbated with liquids and a sensation of food getting stuck in the stomach region. She again followed up with her PCP and was started on dicyclomine which still did not provide any relief prompting her to come to the ED. She denied any recent travel, sick contacts, diarrhea, bloody/black stools. Patient does work as a teacher. Problem list: 1. Mass on lesser curvature of proximal stomach 2. Dyspepsia 3. Depression Plan: 1. Mass on lesser curvature of proximal stomach * EGD on 12/27/2016: Fundic ulcerated submucosal mass. 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 * Advancing diet as tolerated, continuing sucralfate 1 g PO QID for ulceration, omeprazole 40 mg PO BID * Outpatient follow-up for EUS at [facility] as soon as possible. Once report is available she can be scheduled for surgical intervention here with Dr Kang * Follow-up biopsies 2. Dyspepsia * Sucralfate liquid 1 g PO QID * Omeprazole 40 mg PO BID * Avoid NSAIDs 3. Depression * Stable at this time * Continue Zoloft 4. DVT prophylaxis: Lovenox 5. CODE STATUS: Full code Problem List: 1. Gastric ulceration 2. Mass of stomach 3. Depression Pain Ratin Pain Location: Epigastric region Pain Goal: Pain 4 or less Pain Plan: Pain pathway Tomorrow's Labs & Rationales: None required DVT/Prophylaxis: pharmacological Consulting Request: Consulting Specialty: Gastroenterology Discharge Plan Discharge Disposition: home Stable for Discharge? Yes Anticipated Discharge (Day): today If Discharged Today/In 24 Hrs: enter [facility] discharge ord, DC summary done, CMR done HERBERTH BURNETT MD 12/28/16 1247: Attending MD Review Statement Attending Statement Attending MD Statement: examined this patient, discuss w/resident/PA/GLASS PRESSER, agreed w/resident/PA/GLASS PRESSER, reviewed EMR data (avail) Attending Assessment/Plan: Agree with resident assessment and plan. Patient is improved, endoscopy complete, possible malignancy. Will attempt full liquid diet, if tolerated, patient can be discharged home with outpatient follow up for endoscopic ultrasound and follow up.
[2016-12-28] MEDS ORDERED: SUCRALFATE1 GM/10 M1 PO (09:56)
[2016-12-28 15:41] VITALS: BP 118/68
== END 2016-12-28 16:00 | DRG 392 ==
LOC: ERH 15:21 → ERHI 19:14 → 2NB 19:14 → ENRESERV 20:43 → 2NB 21:10 → ENPENDDIS 12-28 15:24 → 2NB 12-28 16:00
PROVIDERS: Internal Medicine; Physician Assistant; ADMIT Student in an Organized Health Care Education/Training Program
PROC: 0DB68ZX Excision of Stomach, Via Natural or Artificial Opening Endoscopic, Diagnostic (ICD-10-PCS; principal; 2016-12-27)
DX: K31.9 Disease of stomach and duodenum, unspecified (principal); F32.9 Major depressive disorder, single episode, unspecified; K21.9 Gastro-esophageal reflux disease without esophagitis
CPT/HCPCS: 2NBP; 74177; 82436; 88305; 88312; 96361; 96374; J0131; J0500; J1650; J2405; J7042